=== PATIENT | female | born 1995 | race Caucasian/White ===

== ENCOUNTER → 2018-08-17 12:48 | Observation (INO) ==
[2018-08-17 10:51] LABS: Bilirubin,Urine Negative (Negative); Blood,Urine Negative (Negative); Color,Urine Yellow (Yellow); Glucose,Urine (UA) Normal (Normal); Ketones,Urine Negative (Negative); Leukocyte Esterase,Urine Moderate (Negative); Nitrite,Urine Negative (Negative); PH,Urine 6.5 pH Units (5.0-8.0); Protein,Urine Negative (Neg-Trace); Specific Gravity,Urine 1.021 (1.010-1.025); Urobilinogen,Urine Normal (Normal)
[2018-08-17 10:52] LABS: Bacteria,Urine Many per hpf (None-Few); Hyaline Casts,Urine Few per lpf (None-Few); Squamous Epithelial Cell,Urine Many per lpf (None-Few); WBC,Urine 50-100 per hpf (0-3)
[2018-08-17 11:01] LABS: Clarity,Urine Hazy (Clear)
[2018-08-17 11:12] LABS: Amphetamine Screen,Urine Negative ng/mL (Cutoff=1000); Barbiturate Screen,Urine Negative ng/mL (Cutoff=200); Benzodiazepines Screen,Urine Negative ng/mL (Cutoff=200); Cannabinoid Screen,Urine Negative ng/mL (Cutoff = 50); Cocaine Screen,Urine Negative ng/mL (Cutoff= 300); Opiate Screen,Urine Negative ng/mL (Cutoff=300); Phencyclidine Screen,Urine Negative ng/mL (Cutoff=25)
[2018-08-17 11:25] LABS: RBC,Urine 0-3 per hpf (0-3)
--- NOTE | 2018-08-17 11:34 | OB/GYN History & Physical ---
Date of Encounter: 08/17/18 Time of Encounter: 11:16 Assessment and Plan (1) 28 weeks gestation of Current visit: Yes Status: Acute (2) Monochorionic diamniotic twin in second trimester Current visit: Yes Status: Acute Some concern for twin to twin transfusion on last US per pt report. Awaiting records. (3) labor in second trimester Current visit: Yes Status: Acute Contractions every 6 minutes. SVE 2/70/high. FFN and vaginal cultures pending. Plan for transfer to tertiary care center. LR bolus Celestone Magnesium and antibiotics per MFM recommendations. Transfer to [facility] POC discussed with Dr. Yun Qualifiers: Fetus number: fetus 2 of multiple gestation Qualified Code(s): O60.10X2 - labor with delivery, unspecified trimester, fetus 2 (4) Recurrent UTI (urinary tract infection) complicating Current visit: Yes Status: Acute Qualifiers: Trimester: second trimester Qualified Code(s): O23.42 - Unspecified infection of urinary tract in , second trimester History of Present Illness Chief complaint: Cramping & vaginal discharge HPI: Ms. Denis Morrissey is a 23 year old female presenting at 28w6d with mono-di twins with c/o of cramping that began Friday that became stronger yesterday and an increase in vaginal discharge. Denies VB or LOF. Reports good FM. Patient following with MFM at [facility]. Last US report at 21w2d shows Vernon-Di twins, anterior placenta, and mild urinary tract dilataion noted for fetus B. Per pt, recent US showed higher OWEN for one fetus which was concerning for twin to twin transfusion. US also showed cervical length 2.5cm. also complicated by obesity and recurrent UTI's. O positive Rubella immune RPR negative Hep B sag negative GC negative HIV negative Varicella immune Quad screen normal 3 hour GTT: 99, 158, 145, 120 Past Med Surg Social Fam HX - Past Medical History Medical history: no medical history Psychiatric history: no psych history - Past Surgical History Surgical History: no surgical history - Social History Smoking Status: Never smoker Smokeless Tobacco Status: No Alcohol use: none Drug use: none - Family History Father Name: Lexa Living Status: Still Living Hx Family Cardiac Disorders: Yes (HTN) Obstetrical History - Pregnancies : 1 Medications and Allergies Aspirin [Lo-Dose Aspirin EC] 81 mg PO DAILY 08/17/18 [History] Vits96/Iron Fum/Folic [ Tablet] 1 tab PO DAILY 08/17/18 [History] Allergy/AdvReac Type Severity Reaction Status Date / Time latex Allergy Hives Verified 08/17/18 10:41 Sulfa (Sulfonamide Allergy Dizziness Verified 08/17/18 10:41 Antibiotics) Review of System OB All systems PM: reviewed and no additional remarkable complaints except as stated Exam - Constitutional Constitutional: well developed, well nourished, no acute distress - HEENT HEENT: Mucus Membranes Moist - Lungs Respiratory exam: CTAB - Cardiovascular Cardiovascular exam: RRR, +S1, +S2 - Abdomen Abdomen: Present: gravid, non tender - Extremities Extremities exam: normal inspection, pedal edema (mild bilaterally) - Cervix Dilation: 2 Effacement: 70 Station: -3 (bolottable) - Uterus Uterus exam: Absent: tender - Anus/Rectum Anus/Rectum: Present: normal perianal skin Results Abnormal lab results Urine Clarity Hazy (Clear) A 08/17/18 10:36 Ur Leukocyte Esterase Moderate (Negative) H 08/17/18 10:36 All other labs normal. - VTE Reasons for not Prescribing Prophylaxis: Treatment not Indicated - Low risk for VTE
[2018-08-17 11:44] LABS: Basophils # 0.1 K/mcL (0.0-0.2); Basophils % 0.7 %; Eosinophils # 0.1 K/mcL (0.0-0.6); Eosinophils % 0.5 %; Hematocrit 34.9 % (35.3-44.9); Hemoglobin 11.7 g/dL (11.5-15.4); Lymphocytes # 1.5 K/mcL (0.6-4.6); Lymphocytes % 10.4 %; Mean Corpuscular HGB Conc 33.5 g/dL (31.6-35.5); Mean Corpuscular Hemoglobin 28.9 pg (28.0-33.3); Mean Corpuscular Volume 86.2 fL (83.0-100.0); Mean Platelet Volume 10.2 fL (9.4-12.4); Monocytes # 0.6 K/mcL (0.0-1.3); Monocytes % 4.4 %; Neutrophils # 11.8 K/mcL (1.6-8.9); Platelet Count 224 K/mcL (140-400); Red Blood Count 4.05 M/mcL (3.82-4.97); Red Cell Distribution Width 12.7 % (11.5-14.5)
[2018-08-17 12:24] LABS: Trichomonas DNA Not Detected (Not Detect)
[2018-08-17 12:25] LABS: Candida DNA Not Detected (Not Detect); Gardnerella DNA Not Detected (Not Detect)
[~2018-08-17 12:48] MED LIST: Ampicillin 2 GM in 0.9 % Sodium Chloride Mini Bag 100 ML IVPB ONE; Betamethasone Acet/SodPhos 6 MG/ML MDV IM SCH; Calcium Gluconate 1,000 MG/10 ML VIAL IVPB PRN; Magnesium Sulfate 20 gm/500mL 20 GM/500 ML IV.SOLN IVC SCH; Ringers Solution, Lactated 1,000 ML IVC ONE; Ringers Solution, Lactated 1,000 ML ONE
== END | disposition short-term general hospital (02) ==
LOC: 1NENULAB
PROVIDERS: ADMIT Obstetrics & Gynecology; ATTEND Obstetrics & Gynecology

== ENCOUNTER → 2018-09-28 16:15 | Observation (INO) ==
[2018-09-28 12:14] LABS: Basophils # 0.1 K/mcL (0.0-0.2); Basophils % 0.6 %; Eosinophils # 0.1 K/mcL (0.0-0.6); Eosinophils % 0.5 %; Hematocrit 35.9 % (35.3-44.9); Hemoglobin 11.7 g/dL (11.5-15.4); Immature Granulocytes % 2.8 % (0-4); Lymphocytes # 1.5 K/mcL (0.6-4.6); Lymphocytes % 9.9 %; Mean Corpuscular HGB Conc 32.6 g/dL (31.6-35.5); Mean Corpuscular Hemoglobin 26.5 pg (28.0-33.3); Mean Corpuscular Volume 81.4 fL (83.0-100.0); Mean Platelet Volume 9.9 fL (9.4-12.4); Monocytes # 0.9 K/mcL (0.0-1.3); Monocytes % 6.1 %; Platelet Count 229 K/mcL (140-400); Red Blood Count 4.41 M/mcL (3.82-4.97); Red Cell Distribution Width 13.3 % (11.5-14.5); Segmented Neutrophils % 80.1 %
[2018-09-28 12:26] LABS: Alanine Aminotransferase 13 Units/L (7-52); Aspartate Amino Transferase 17 Units/L (13-39); BUN/Creatinine Ratio 15 (6-26); Blood Urea Nitrogen 10 mg/dL (6-20); Lactate Dehydrogenase 169 Units/L (140-271); Uric Acid 4.6 mg/dL (2.3-7.6); eGFR For Non-African Americans > 60 (> 60)
[2018-09-28 14:35] LABS: Amphetamine Screen,Urine Negative ng/mL (Cutoff=1000); Barbiturate Screen,Urine Negative ng/mL (Cutoff=200); Benzodiazepines Screen,Urine Negative ng/mL (Cutoff=200); Cannabinoid Screen,Urine Negative ng/mL (Cutoff = 50); Cocaine Screen,Urine Negative ng/mL (Cutoff= 300); Creatinine,Urine 106 mg/dL; Opiate Screen,Urine Negative ng/mL (Cutoff=300); Phencyclidine Screen,Urine Negative ng/mL (Cutoff=25); Protein/Creatinine Ratio,Urine 0.14 mg/mg (0.00-0.20)
--- NOTE | 2018-09-28 16:06 | Discharge Summary ---
Date of Encounter: 09/28/18 Time of Encounter: 16:04 - Discharge Diagnosis (1) 34 weeks gestation of Priority: Primary Status: Acute Comments: Follow-up with Dr. West as scheduled and [facility] as scheduled labor parameters discussed Discharge home (2) Monochorionic diamniotic twin gestation in third trimester Priority: Secondary Status: Acute Comments: Patient to follow-up with [facility] maternal medicine on Friday this week (3) Hypertension affecting in third trimester Priority: Secondary Status: Acute Comments: PIH evaluation negative Preeclampsia signs and symptoms discussed and parameters given for when to call - Discharge Medications Home Medications: Aspirin [Lo-Dose Aspirin EC] 81 mg PO DAILY 08/17/18 [History] Vits96/Iron Fum/Folic [ Tablet] 1 tab PO DAILY 08/17/18 [History] Allergies/Adverse Reactions: Allergy/AdvReac Type Severity Reaction Status Date / Time latex Allergy Hives Verified 08/17/18 10:41 Sulfa (Sulfonamide Allergy Dizziness Verified 08/17/18 10:41 Antibiotics) Data Procedures and tests throughout hospitalization: Laboratory Tests 09/28/18 09/28/18 09/28/18 11:55 11:55 12:48 WBC 15.0 H RBC 4.41 Hgb 11.7 Hct 35.9 MCV 81.4 L MCH 26.5 L MCHC 32.6 RDW 13.3 Plt Count 229 MPV 9.9 Immature Gran % 2.8 Seg Neutrophils % 80.1 Lymphocytes % 9.9 Monocytes % 6.1 Eosinophils % 0.5 Basophils % 0.6 Neutrophils # 12.0 H Lymphocytes # 1.5 Monocytes # 0.9 Eosinophils # 0.1 Basophils # 0.1 BUN 10 Creatinine 0.66 Est GFR ( Amer) > 60 Est GFR (Non-Af Amer) > 60 BUN/Creatinine Ratio 15 Uric Acid 4.6 AST 17 ALT 13 Lactate Dehydrogenase 169 Urine Creatinine 106 Protein/Creatinin Ratio 0.14 Urine Total Protein 15 H Urine Opiates Screen Negative Ur Barbiturates Screen Negative Ur Phencyclidine Scrn Negative Ur Amphetamines Screen Negative U Benzodiazepines Scrn Negative Urine Cocaine Screen Negative U Marijuana (THC) Screen Negative Ur Drug Screen Interp See Below Labs on day of discharge: Labs from last 24 hours 09/28/18 09/28/18 09/28/18 12:48 11:55 11:55 WBC 15.0 H RBC 4.41 Hgb 11.7 Hct 35.9 MCV 81.4 L MCH 26.5 L MCHC 32.6 RDW 13.3 Plt Count 229 MPV 9.9 Immature Gran % 2.8 Seg Neutrophils % 80.1 Lymphocytes % 9.9 Monocytes % 6.1 Eosinophils % 0.5 Basophils % 0.6 Neutrophils # 12.0 H Lymphocytes # 1.5 Monocytes # 0.9 Eosinophils # 0.1 Basophils # 0.1 BUN 10 Creatinine 0.66 Est GFR ( Amer) > 60 Est GFR (Non-Af Amer) > 60 BUN/Creatinine Ratio 15 Uric Acid 4.6 AST 17 ALT 13 Lactate Dehydrogenase 169 Urine Creatinine 106 Protein/Creatinin Ratio 0.14 Urine Total Protein 15 H Urine Opiates Screen Negative Ur Barbiturates Screen Negative Ur Phencyclidine Scrn Negative Ur Amphetamines Screen Negative U Benzodiazepines Scrn Negative Urine Cocaine Screen Negative U Marijuana (THC) Screen Negative Ur Drug Screen Interp See Below Date of admission: 09/28/18 11:28 Primary care physician: PCP [facility] Discharging clinician: Lynnette Manning Anticipated date of discharge: 09/28/18 - Patient Status Disposition: Home, Self-Care Condition: Good Functional capacity at discharge: independent ambulation Overall status at discharge: patient is back to baseline - Discharge Instructions Follow Up With: NONE,PCP [Primary Care Provider] - Debbie West MD [Partnered Physician] - - Diet and Activity Activity: increase activity as tolerated Diet: regular diet Hospital Course [employer] Reason for admission: other Discharge diagnosis: other Hospital course: Patient was sent over from the office for PIH evaluation. She had elevated blood pressures 2 in the office today. Mild pretibial edema appreciated. Patient denies headaches, blurry vision, epigastric pain. She was monitored for an extended period of time exceeding 4 hours. She made very little cervical little cervical change during this time. She reports feeling some minimal tightening but no painful contractions. R Cateory I for entirety of monitoring. She remains . Discharged home in stable condition with instructions for follow up. Time Attestation: Total time spent providing and/or coordinating discharge services: Time Spent: Less than 30 minutes Exam - Constitutional General appearance IM: A&O X 3 - Respiratory Respiratory exam: Present: CTAB - Cardiovascular Cardiovascular exam IM: Present: RRR, +S1, +S2 - GI/Abdominal GI/Abdominal exam IM: normal bowel sounds, no peritoneal signs - Rectal Rectal exam: deferred - Uterine Tone: Firm - Extremities Exam Extremities exam IM: Present: normal capillary refill, normal inspection, pedal edema, radial pulses palpable and symmetrical - Neurological Exam Neurological exam: alert, CN II-XII intact, normal gait, oriented X3, reflexes normal, no focal deficits, strengths equal and symetr throughout - VTE Reasons for not Prescribing Prophylaxis: Treatment not Indicated - Low risk for VTE
[~2018-09-28 16:15] MED LIST changes: -Ampicillin 2 GM in 0.9 % Sodium Chloride Mini Bag 100 ML IVPB ONE; +Betamethasone Acet/SodPhos 6 MG/ML MDV IM ONE; -Betamethasone Acet/SodPhos 6 MG/ML MDV IM SCH; -Calcium Gluconate 1,000 MG/10 ML VIAL IVPB PRN; -Magnesium Sulfate 20 gm/500mL 20 GM/500 ML IV.SOLN IVC SCH; -Ringers Solution, Lactated 1,000 ML ONE
== END | disposition home or self-care (01) ==
LOC: 1NENULAB
PROVIDERS: ADMIT Obstetrics & Gynecology; ATTEND Obstetrics & Gynecology